=== PATIENT | male | born 1970 | race Caucasian/White ===

== ENCOUNTER 2018-12-11 14:09 | Day surgery (SDC) | payer BC ==
[2018-12-11] MEDS ORDERED: Bupivacaine 0.5%/EPINEPHrine 1:200,000 50 ML MDV ONE (15:05)
[2018-12-11] MEDS ORDERED: Lidocaine 1% with EPINEPHrine 1:100,000 20 ML MDV ONE (15:05)
[2018-12-11] MEDS ORDERED: Ondansetron 4 MG/2 ML SDV ONE (15:14)
[2018-12-11] MEDS ORDERED: Lidocaine 1% 4 ML ONE (15:14)
[2018-12-11] MEDS ORDERED: Rocuronium 50 MG/5 ML Vial ONE (15:14)
[2018-12-11] MEDS ORDERED: Midazolam 1 MG/ML 2 ML SDV ONE ×2 (15:15→17:04)
[2018-12-11] MEDS ORDERED: Propofol 200 MG/20 ML SDV ONE (15:15)
[2018-12-11] MEDS ORDERED: fentaNYL 250 MCG/5 ML SDV ONE (15:15)
--- NOTE | 2018-12-11 15:18 | PCM.HP ---
H&P History of Present Illness - General Date of Service: 12/11/18 Admit Problem/Dx: Admission Diagnosis/Problem Admission Diagnosis/Problem Appendicitis Source of Information: Patient, Provider History Limitations: Reports: No Limitations - History of Present Illness Initial Comments - Free Text/Narative: The patient is a 48 y/o gentleman who presents with a 7 day history of abdominal pain. The pain was on the right side and the patient attributed this to muscle soreness. However, it localizes right lower quadrant today. He reports subjective fever with chills last night. He had mild pain with urination. He reports the pain becomes more severe. His abdomen with movement or riding over bumps. He denies any nausea, vomiting, diarrhea, constipation. He presented to the [facility]. He underwent evaluation with laboratory testing which revealed White blood cell count 12.9, he also had a CT scan done of the abdomen which showed acute appendicitis. Right Lower Abdomen Pain Score (Numeric/FACES): 9 - Related Data Allergies/Adverse Reactions: Allergies Allergy/AdvReac Type Severity Reaction Status Date / Time No Known Allergies Allergy Verified 12/11/18 14:20 Home Medications: Home Meds EPINEPHrine [Epinephrine] 1 applic INJECT ASDIRECTED 12/11/18 [History] Ibuprofen [Motrin] 800 mg PO TID 12/11/18 [History] [place]-3 Fatty Acids/Fish Oil [[facility] Fish Oil 1,200 mg Softgel] 1 tab PO DAILY 01/22 [History] diphenhydrAMINE [Benadryl] 25 mg PO QID PRN 12/11/18 [History] Past Medical History Cardiovascular History: Reports: High Cholesterol, Hypertension Social & Family History - Family History Cardiac: Reports: Hypertension, [place] Endocrine/Metabolic: Reports: Diabetes, type II Oncologic: Reports: Breast, Skin - Tobacco Use Smoking Status *Q: Never Smoker - Caffeine Use Caffeine Use: Reports: Coffee - Recreational Drug Use Recreational Drug Use: No H&P Review of Systems - Review of Systems: Review Of Systems: See Below General: Reports: Fever (Subjective), Chills HEENT: Reports: No Symptoms Pulmonary: Reports: No Symptoms Cardiovascular: Reports: No Symptoms Gastrointestinal: Reports: Abdominal Pain. Denies: Anorexia, Constipation, Diarrhea, Hematochezia Genitourinary: Reports: Dysuria Musculoskeletal: Denies: No Symptoms Skin: Reports: No Symptoms Neurological: Reports: No Symptoms Hematologic/Lymphatic: Reports: Easy Bleeding Exam - Exam Exam: See Below - Vital Signs Vital Signs: Last Vital Signs Temp 36.9 C 12/11/18 14:26 Pulse 90 12/11/18 14:26 Resp 20 12/11/18 14:26 BP 137/101 H 12/11/18 14:26 Pulse Ox 98 12/11/18 14:26 Weight: 89.358 kg - Exam Quality Assessment: No: Supplemental Oxygen General: Alert, Oriented HEENT: Conjunctiva Clear, EOMI Neck: Supple Lungs: Clear to Auscultation, Normal Respiratory Effort Cardiovascular: Regular Rate, Regular Rhythm GI/Abdominal Exam: Soft, No Distention, Rebound (And right lower quadrant), Tender (In the right lower quadrant) Extremities: Other (Deformity of right ankle due to old fractures) Peripheral Pulses: 2+: Dorsalis Pedis (L), Dorsalis Pedis (R) Skin: Warm, Dry, Intact Neurological: Cranial Nerves Intact Neuro Extensive - Mental Status: Alert, Oriented x3 *Q Meaningful Use (ADM) - VTE Risk Assess *Q Each Risk Factor Represents 1 Point: Age 41 - 59 years, Minor Surgery Planned Total Score 1 Point Risk Factors: 2 - Problem List (1) Acute appendicitis SNOMED Code(s): 48738186 ICD Code: K35.80 - UNSPECIFIED ACUTE APPENDICITIS Status: Acute Current Visit: Yes Problem List Initiated/Reviewed/Updated: Yes Orders Last 24hrs: Active Orders 24 hr Category Date Time Status Patient Status [ADT] Routine ADT 12/11/18 14:40 Active Schedule Procedure [COMM] Stat Oth 12/11/18 14:42 Ordered Assessment/Plan Comment:: 48, with acute appendicitis. - Discussed surgical treatment with laparoscopic appendectomy, possible open. Discussed risks of infection, bleeding, possible bowel injury and/or possible staple line failure. Written consent was obtained - Discussed with the patient family that the hospital stay will be determined on intraoperative findings. There is a question of perforation on the CT scan, however, we also discussed that extended stay for IV antibiotics will not be helpful in preventing an abscess - Nothing by mouth - IV fluid resuscitation - Will give dose of IV metronidazole and ceftriaxone Starla Tijerina MD General Surgery
[2018-12-11] MEDS ORDERED: metroNIDAZOLE/Normal Saline 500 MG in Premix Bag 1 BAG IV ONE (15:22)
[2018-12-11] MEDS ORDERED: cefTRIAXone 2 GM Vial IV ONE (15:22)
[2018-12-11] MEDS ORDERED: cefTRIAXone 2 GM in Sodium Chloride 0.9% 100 ML IV STA (15:25)
--- NOTE | 2018-12-11 15:27 | PCM.PREANE ---
Preanesthetic Assessment - Procedure Proposed Procedure: appy - Anesthesia/Transfusion/Family Hx Anesthesia History: No Prior Anesthesia Family History of Anesthesia Reaction: No Transfusion History: No Prior Transfusion(s) - Review of Systems General: Fever (last 2 days), Chills Pulmonary: No Symptoms Cardiovascular: No Symptoms Gastrointestinal: Abdominal Pain (48 hous) Neurological: No Symptoms Other: Reports: None - Physical Assessment NPO Status Date: 12/10/18 (had water today) NPO Status Time: 18:00 O2 Sat by Pulse Oximetry: 98 Respiratory Rate: 20 Vital Signs: Last Vital Signs Temp 98.5 F 12/11/18 14:26 Pulse 90 12/11/18 14:26 Resp 20 12/11/18 14:26 BP 137/101 H 12/11/18 14:26 Pulse Ox 98 12/11/18 14:26 Height: 6 ft 2 in Weight: 89.358 kg ASA Class: 2E Mental Status: Alert & Oriented x3 Airway Class: Mallampati = 1 Dentition: Reports: Normal Dentition Thyro-Mental Finger Breadths: 3 Mouth Opening Finger Breadths: 3 ROM/Head Extension: Full Lungs: Clear to Auscultation, Normal Respiratory Effort Cardiovascular: Regular Rate, Regular Rhythm - Allergies Allergies/Adverse Reactions: Allergies Allergy/AdvReac Type Severity Reaction Status Date / Time No Known Allergies Allergy Verified 12/11/18 14:20 - Blood Blood Available: No - Acknowledgements Anesthesia Type Planned: General Anesthesia Pt an Appropriate Candidate for the Planned Anesthesia: Yes Alternatives and Risks of Anesthesia Discussed w Pt/Guardian: Yes Pt/Guardian Understands and Agrees with Anesthesia Plan: Yes PreAnesthesia Questionnaire - Past Health History Medical/Surgical History: Denies Medical/Surgical History Cardiovascular History: Reports: High Cholesterol, Hypertension Respiratory History: Reports: None Gastrointestinal History: Reports: GERD Oncologic (Cancer) History: Reports: None - SUBSTANCE USE Smoking Status *Q: Never Smoker Tobacco Use Within Last Twelve Months: Snuff/Dip Second Hand Smoke Exposure: No Days Per Week of Alcohol Use: 7 Number of Drinks Per Day: 6 Total Drinks Per Week: 42 Recreational Drug Use History: No - HOME MEDS Home Medications: Home Meds EPINEPHrine [Epinephrine] 1 applic INJECT ASDIRECTED 12/11/18 [History] Ibuprofen [Motrin] 800 mg PO TID 12/11/18 [History] [place]-3 Fatty Acids/Fish Oil [[facility] Fish Oil 1,200 mg Softgel] 1 tab PO DAILY 01/22 [History] diphenhydrAMINE [Benadryl] 25 mg PO QID PRN 12/11/18 [History] - CURRENT (IN HOUSE) MEDS Current Meds: Current Medications Discontinued Medications Bupivacaine HCl/Epinephrine Bitart (Marcaine 0.5%/Epinephrine 1:200,000) Confirm Administered Dose 50 ml .ROUTE .STK-MED ONE Stop: 12/11/18 15:06 Fentanyl (Sublimaze) Confirm Administered Dose 250 mcg .ROUTE .STK-MED ONE Stop: 12/11/18 15:16 Lidocaine HCl (Xylocaine-Mpf 1%) Confirm Administered Dose 4 mls @ as directed .ROUTE .STK-MED ONE Stop: 12/11/18 15:15 Lidocaine/Epinephrine (Xylocaine 1% With Epinephrine 1:100,000) Confirm Administered Dose 40 ml .ROUTE .STK-MED ONE Stop: 12/11/18 15:06 Midazolam HCl (Versed 1 Mg/Ml) Confirm Administered Dose 2 mg .ROUTE .STK-MED ONE Stop: 12/11/18 15:16 Ondansetron HCl (Zofran) Confirm Administered Dose 4 mg .ROUTE .STK-MED ONE Stop: 12/11/18 15:15 Propofol (Diprivan 20 Ml) Confirm Administered Dose 200 mg .ROUTE .STK-MED ONE Stop: 12/11/18 15:16 Rocuronium [place] (Zemuron) Confirm Administered Dose 50 mg .ROUTE .STK-MED ONE Stop: 12/11/18 15:15
[2018-12-11] MEDS ORDERED: Sodium Chloride 0.9% 1,000 ML IV SCH (15:30)
[2018-12-11] MEDS ORDERED: Succinylcholine/Normal Saline 100 MG/5 ML Syringe ONE (15:43)
[2018-12-11] MEDS ORDERED: HYDROmorphone 0.5 MG/0.5 ML Syringe ONE (15:55)
[2018-12-11] MEDS ORDERED: HYDROmorphone 0.5 MG/0.5 ML Syringe IVPUSH PRN (15:59)
[2018-12-11] MEDS ORDERED: fentaNYL 100 MCG/2 ML SDV IVPUSH PRN (15:59)
[2018-12-11] MEDS ORDERED: Haloperidol Lactate 5 MG/ML SDV IVPUSH ONE (15:59)
[2018-12-11] MEDS ORDERED: Ondansetron 4 MG/2 ML SDV IVPUSH PRN (15:59)
[2018-12-11] MEDS ORDERED: Neostigmine Methylsulfate 1 MG/ML 5 ML Syringe ONE (16:13)
[2018-12-11] MEDS ORDERED: Ketorolac 30 MG/ML SDV ONE (16:30)
[2018-12-11] MEDS ORDERED: Lactated Ringers 1,000 ML ONE (16:39)
[2018-12-11] MEDS ORDERED: ePHEDrine/Normal Saline 25 MG/5 ML Syringe ONE (16:50)
--- NOTE | 2018-12-11 17:01 | PCM.OPNOTE ---
- General Post-Op/Procedure Note Date of Surgery/Procedure: 12/11/18 Operative Procedure(s): laparoscopic appendectomy Findings: inflamed appendix, gangrenous at base Pre Op Diagnosis: acute appendicitis Post-Op Diagnosis: same Anesthesia Technique: General ET Tube Primary Surgeon: Starla Tijerina Anesthesia Provider: Arnaldo Pino Pathology: appendix Fluid Replacement, Intraop: 1,000 Output, Urine Amount: 0 EBL in mLs: 10 Complications: none apparent Condition: Stable
--- NOTE | 2018-12-11 17:06 | PCM.PRNOTE ---
- Free Text/Narrative Note: Operative Report Date of surgery: December 11, 2018 Preoperative diagnosis: acute appendicitis. Postoperative diagnosis: same Procedure performed: laparoscopic appendectomy Surgeon: Dr. Starla Tijerina Anesthesia: General Corporate Sales Manager: . Arnaldo Pino CRNA Estimated blood loss 10 mL IV fluids: 1000 mL crystalloid Urine output: 0mL, patient voided prior to the procedure Drains and lines: None Findings: . Inflamed appendix with gangrenous base Pathology: Appendix Indications for procedure: The patient is a 48-year-old male who presented to the walk-in clinic with a 6 day history of abdominal pain that localized to the right lower quadrant in the last day. He had elevated white blood cell count of 12.[address] and findings of acute appendicitis. He was counseled for laparoscopic appendectomy, possible conversion to open. We discussed risk of infection, bleeding and possible bowel injury, possible staple line failure. His written consent was obtained. Description of procedure: The patient was taken back to the operating room and placed in supine position on the operating table. SCD boots were in place and functional prior to the start of the procedure. Preoperative antibiotics were administered, ceftriaxone 2 g IV and metronidazole 500 mg IV. The patient had successful induction of general anesthesia and was intubated without difficulty. Pt was then prepped and draped in standard surgical fashion and a timeout was performed. We began by making a 15 mm incision in the infraumbilical skin and deepened down to level of the fascia which was then grasped and incised sharply. We entered the peritoneum and then placed stay sutures of 0 Vicryl on the fascial edges. A 12 mm Trinidad port was then placed into the umbilicus and the balloon was inflated. The abdomen was insufflated to 15 mmHg a 5 mm camera was inserted. There was no evidence of any injury created from entry into the abdomen. A TA P block was performed using mixed 1% lidocaine with epinephrine and 0.5% bupivacaine with epinephrine . We then proceeded to place a 5 mm port under direct visualization in the suprapubic midline and an additional 5mm port in the left lower quadrant. The patient was then positioned in Trendelenburg with right side elevated and we proceeded to mobilize the appendix. The appendix was inflamed with fibrinous adhesions to the surrounding small bowel. These adhesions were taken down and the appendix is grasped. We noted that the base appeared gangrenous with possible perforation. This was grasped and elevated. There were adhesions to the lateral abdominal wall which were taken down. The appendix base was then isolated and this tissue staple load was fired at the base of the appendix. Mesoappendix was taken with a vascular staple load. The specimen was in place in the Endo Catch bag. We then used a Ray-Kristin to remove any blood in the area. There was no active bleeding at the end of this case. The abdomen was then desufflated and the umbilical fascia closed with 0 Vicryl suture. The skin was then reapproximated at all port sites using a 4-0 Monocryl subcutaneous stitch and covered with Dermabond surgical glue. The patient tolerated the procedure. He was extubated and transported to the PACU in stable condition. There were no apparent complications All sponge and needle counts were correct. I was present and scrubbed for the entirety of the procedure. Starla Tijerina MD General Surgery
--- NOTE | 2018-12-11 17:17 | PCM.POSTAN ---
POST ANESTHESIA ASSESSMENT - MENTAL STATUS Mental Status: Alert, Oriented - VITAL SIGNS Pulse Rate: 100 SaO2: 98 Resp Rate: 12 Blood Pressure: 119/65 Temperature: 97.9 F - RESPIRATORY Respiratory Status: Respiratory Rate WNL, Airway Patent, O2 Saturation Stable, Supplemental Oxygen - CARDIOVASCULAR CV Status: Pulse Rate WNL, Blood Pressure Stable - GASTROINTESTINAL GI Status: No Symptoms - PAIN Pain Score: 0 - POST OP HYDRATION Hydration Status: Adequate & Stable
--- NOTE | 2018-12-11 17:41 | PCM48HPAN ---
Post Anesthesia Note - EVALUATION WITHIN 48HRS OF ANESTHETIC Vital Signs in Normal Range: Yes Patient Participated in Evaluation: Yes Respiratory Function Stable: Yes Airway Patent: Yes (resp at ease) Cardiovascular Function Stable: Yes Hydration Status Stable: Yes Pain Control Satisfactory: Yes Nausea and Vomiting Control Satisfactory: Yes Mental Status Recovered: Yes Pulse Rate: 100 Resp Rate: 12 Temperature: 97.9 F Blood Pressure: 119/65
== END 2018-12-11 23:15 | disposition home or self-care (01) ==
LOC: JD.ED 14:09 → JD.SDS 15:00
PROVIDERS: ATTEND Surgery
DX: K35.31 Acute appendicitis with localized peritonitis and gangrene, without perforation (principal); I10 Essential (primary) hypertension; E78.00 Pure hypercholesterolemia, unspecified; F17.290 Nicotine dependence, other tobacco product, uncomplicated; Z79.899 Other long term (current) drug therapy
CPT/HCPCS: 44970; 99283; C9399; J0330; J1170; J1885; J2001; J2250; J2405; J2704; J2710; J3010; J3490; J7050; J7120; 00840

== ENCOUNTER 2019-07-26 09:54 | Emergency (ER) | payer BC ==
[2019-07-26] MEDS ORDERED: Sodium Chloride 0.9% 10 ML Syringe FLUSH PRN (10:35)
[2019-07-26] MEDS ORDERED: Ondansetron 4 MG/2 ML SDV IVPUSH ONE (10:35)
[2019-07-26] MEDS ORDERED: Sodium Chloride 0.9% 1,000 ML IV ONE (10:35)
--- NOTE | 2019-07-26 10:36 | EDM.PDOC ---
ED HPI GENERAL MEDICAL PROBLEM - General Chief Complaint: Gastrointestinal Problem Stated Complaint: COUGH AND VOMITING FOR 1 WEEK Time Seen by Provider: 07/26/19 10:28 Source of Information: Reports: Patient, RN Notes Reviewed History Limitations: Reports: No Limitations - History of Present Illness INITIAL COMMENTS - FREE TEXT/NARRATIVE: Patient is a 48-year-old male who presents to the ED for evaluation of a cough, and vomiting. Patient states that he thinks he had the flu last week, as he had generalized body aches and chills with a fever. He states over the last week since he began developing symptoms, he has had increased nausea, and is not been able to keep much down for foods or fluids. His notes that he usually drinks 8 or so bottles of water a day, she is fernando if she can get him to drink 1 cup. They note that as soon as he eats or drink anything, that it seems to come up 20 minutes later, sometimes even certain smells will make him vomit. Patient notes that he does have some heartburn as well, and he has been taking Jillian-[place]rie as well. He is not complaining of chest pain or any shortness of breath. He does note that he has some phlegm, it is quite thick that he cannot cough it up. Patient denies any sort of regular medications that he takes, and he does not have a regular provider that he sees. - Related Data Allergies Allergy/AdvReac Type Severity Reaction Status Date / Time No Known Allergies Allergy Verified 07/26/19 10:24 Home Meds: Home Meds EPINEPHrine [Epinephrine] 1 applic INJECT ASDIRECTED 12/11/18 [History] diphenhydrAMINE [Benadryl] 25 mg PO QID PRN 12/11/18 [History] Ondansetron [Zofran ODT] 4 mg PO Q8H PRN #12 tab.dis 07/26/19 [Rx] Promethazine HCl/Codeine [Prometh-Codein 6.25-10 mg/5 ml] 5 ml PO Q4H PRN #60 ml 07/26/19 [Rx] Past Medical History Cardiovascular History: Reports: High Cholesterol, Hypertension Gastrointestinal History: Reports: GERD - Past Surgical History GI Surgical History: Reports: Appendectomy Social & Family History - Family History Family Medical History: Noncontributory Cardiac: Reports: Hypertension, [place] Endocrine/Metabolic: Reports: Diabetes, type II Oncologic: Reports: Breast, Skin - Tobacco Use Smoking Status *Q: Never Smoker - Caffeine Use Caffeine Use: Reports: Coffee, Soda - Recreational Drug Use Recreational Drug Use: Yes Recreational Drug Use Frequency: Rarely ED ROS GENERAL - Review of Systems Review Of Systems: See Below Constitutional: Denies: Fever, Chills HEENT: Denies: Throat Pain Respiratory: Reports: Cough. Denies: Shortness of Breath, Sputum Cardiovascular: Denies: Chest Pain GI/Abdominal: Reports: Nausea, Vomiting. Denies: Abdominal Pain, Constipation, Diarrhea ED EXAM, GI/ABD - Physical Exam Exam: See Below Exam Limited By: No Limitations General Appearance: Alert, WD/WN, No Apparent Distress Eyes: Bilateral: Normal Appearance, EOMI Ears: Normal External Exam Throat/Mouth: Normal Inspection, Normal Lips, Normal Teeth, Normal Gums, Normal Oropharynx (mildly dry oral mucosa), Normal Voice, No Airway Compromise Head: Atraumatic, Normocephalic Neck: Normal Inspection Respiratory/Chest: No Respiratory Distress, Lungs Clear, Normal Breath Sounds, No Accessory Muscle Use, Chest Non-Tender Cardiovascular: Normal Peripheral Pulses, Regular Rate, Rhythm, No Murmur GI/Abdominal Exam: Normal Bowel Sounds, Soft, Non-Tender, No Distention, No Mass Extremities: Normal Inspection, Normal Capillary Refill Neurological: Alert, Oriented, Normal Cognition, No Motor/Sensory Deficits Psychiatric: Normal Affect, Normal Mood Skin Exam: Warm, Dry, Intact, Normal Color, No Rash Course - Vital Signs Last Recorded V/S: Last Vital Signs Temp 99.0 F 07/26/19 10:21 Pulse 94 07/26/19 10:21 Resp 19 07/26/19 12:55 BP 148/96 H 07/26/19 12:55 Pulse Ox 100 07/26/19 12:55 - Orders/Labs/Meds Orders: Active Orders 24 hr Category Date Time Status Peripheral IV Care [RC] . DIRECTED Care 07/26/19 10:35 Active Peripheral IV Insertion Adult [OM.PC] Stat Oth 07/26/19 10:34 Ordered Labs: Laboratory Tests 07/26/19 07/26/19 Range/Units 10:50 10:50 WBC 5.87 (4.23-9.07) K/mm3 RBC 4.61 L (4.63-6.08) M/mm3 Hgb 15.4 (13.7-17.5) gm/dl Hct 45.2 (40.1-51.0) % MCV 98.0 H (79.0-92.2) fl MCH 33.4 H (25.7-32.2) pg MCHC 34.1 (32.2-35.5) g/dl RDW Std Deviation 43.6 (35.1-43.9) fL Plt Count 143 L (163-337) K/mm3 MPV 9.2 L (9.4-12.3) fl Neut % (Auto) 72.6 H (34.0-67.9) % Lymph % (Auto) 14.8 L (21.8-53.1) % [place] % (Auto) 10.4 (5.3-12.2) % Eos % (Auto) 1.5 (0.8-7.0) Baso % (Auto) 0.5 (0.1-1.2) % Neut # (Auto) 4.26 (1.78-5.38) K/mm3 Lymph # (Auto) 0.87 L (1.32-3.57) K/mm3 [place] # (Auto) 0.61 (0.30-0.82) K/mm3 Eos # (Auto) 0.09 (0.04-0.54) K/mm3 Baso # (Auto) 0.03 (0.01-0.08) K/mm3 Sodium 140 (136-145) mEq/L Potassium 4.1 (3.5-5.1) mEq/L Chloride 102 (98-107) mEq/L Carbon Dioxide 25 (21-32) mEq/L Anion Gap 17.1 H (5-15) BUN 10 (7-18) mg/dL Creatinine 1.2 (0.7-1.3) mg/dL Est Cr Clr Drug Dosing 89.43 mL/min Estimated GFR (MDRD) > 60 (>60) mL/min BUN/Creatinine Ratio 8.3 L (14-18) Glucose 119 H (74-106) mg/dL Calcium 8.7 (8.5-10.1) mg/dL Total Bilirubin 1.5 H (0.2-1.0) mg/dL AST 153 H (15-37) U/L ALT 124 H (16-63) U/L Alkaline Phosphatase 103 (46-116) U/L Total Protein 7.5 (6.4-8.2) g/dl Albumin 3.9 (3.4-5.0) g/dl Globulin 3.6 gm/dL Albumin/Globulin Ratio 1.1 (1-2) Meds: Medications Discontinued Medications Generic Name Dose Route Start Last Admin Trade Name Freq PRN Reason Stop Dose Admin Sodium Chloride 1,000 mls @ 999 mls/hr 07/26/19 10:35 07/26/19 11:06 Normal Saline IV 07/26/19 11:35 999 mls/hr ONETIME ONE Administration Ondansetron HCl 4 mg 07/26/19 10:35 07/26/19 11:06 Zofran IVPUSH 07/26/19 10:36 4 mg ONETIME ONE Administration Pantoprazole Sodium 40 mg 07/26/19 10:49 07/26/19 11:02 Protonix Iv IVPUSH 07/26/19 10:50 40 mg ONETIME ONE Administration Sodium Chloride 10 ml 07/26/19 10:35 07/26/19 11:07 Saline Flush FLUSH 10 ml ASDIRECTED PRN Administration Keep Vein Open - Re-Assessments/Exams Free Text/Narrative Re-Assessment/Exam: 07/26/19 10:52 Patient presents to the ED for the evaluation of nausea/vomiting. I will have an IV be placed, give some IV fluids, CBC, CMP for initial management and 4 mg Zofran for nausea relief, with 40mg Protonix for heartburn relief. Departure - Departure Time of Disposition: 12:11 Disposition: Home, Self-Care 01 Condition: Fair Clinical Impression: Cough Nausea and vomiting Qualifiers: Vomiting type: unspecified Vomiting Intractability: non-intractable Qualified Code(s): R11.2 - Nausea with vomiting, unspecified - Discharge Information *PRESCRIPTION DRUG MONITORING PROGRAM REVIEWED*: Yes *COPY OF PRESCRIPTION DRUG MONITORING REPORT IN PATIENT HAYDEE: No Prescriptions: Ondansetron [Zofran ODT] 4 mg PO Q8H PRN #12 tab.dis PRN Reason: Nausea Promethazine HCl/Codeine [Prometh-Codein 6.25-10 mg/5 ml] 5 ml PO Q4H PRN #60 ml PRN Reason: Cough Instructions: Nausea and Vomiting, Adult, [id number] Referrals: PCP,None [Primary Care Provider] - Forms: ED Department Discharge, ED Return to Work/School Form Additional Instructions: You have been evaluated in the ED for nausea/vomiting. You have received IV fluid in the ED to help with the dehydration from the vomiting. Over the next 24-48 hours please try to limit diet to clear liquids and advance as tolerate to a bland diet to alleviate symptoms of nausea/vomiting. Please use the Zofran every 8 hours as needed for nausea. You were also given a prescription for cough medication please take as directed. These medications were electronically prescribed to the [facility] pharmacy located on [address]. Your liver enzymes were mildly elevated, recommend that you have a repeat testing of these sometime in the next week or 2 to make sure they are returning within normal limits. This was an incidental finding, and most likely is not an acute matter. Please return to the ED if your symptoms should change or worsen. Sepsis Event Note - Evaluation Sepsis Screening Result: No Definite Risk - Focused Exam Vital Signs: Vital Signs Temp Pulse Resp BP Pulse Ox 07/26/19 12:55 19 148/96 H 100 07/26/19 10:21 99.0 F 94 17 184/114 H 98 Date Exam was Performed: 07/26/19 Time Exam was Performed: 19:41 - My Orders Last 24 Hours: My Active Orders 07/26/19 10:34 Peripheral IV Insertion Adult [OM.PC] Stat 07/26/19 10:35 Peripheral IV Care [RC] . DIRECTED - Assessment/Plan Last 24 Hours: My Active Orders 07/26/19 10:34 Peripheral IV Insertion Adult [OM.PC] Stat 07/26/19 10:35 Peripheral IV Care [RC] . DIRECTED
[2019-07-26] MEDS ORDERED: Pantoprazole 40 MG Vial IVPUSH ONE (10:49)
== END 2019-07-26 12:55 | disposition home or self-care (01) ==
LOC: JD.ED 09:54
DX: R11.2 Nausea with vomiting, unspecified (principal); R05 Cough; I10 Essential (primary) hypertension
CPT/HCPCS: 36415; 80053; 85025; 96361; 96374; 96375; 99284; C9113; J2405; J7030; 99283

== ENCOUNTER 2020-05-16 12:10 | Emergency (ER) | payer BC ==
[2020-05-16] MEDS ORDERED: Sodium Chloride 0.9% 10 ML Syringe FLUSH PRN (12:28)
[2020-05-16] MEDS ORDERED: Sodium Chloride 0.9% 1,000 ML IV STA (12:52)
--- NOTE | 2020-05-16 13:49 | CR ---
PROCEDURE INFORMATION: Exam: XR Chest, 1 View Exam date and time: 05/16/2020 12:20 PM Age: 49 years old Clinical indication: Cough TECHNIQUE: Imaging protocol: XR of the chest Views: 1 view. COMPARISON: No relevant prior studies available. FINDINGS: Lungs: Area patchy airspace opacity noted within the right middle lobe consistent with atelectasis and/or developing pneumonia. Pleural space: Unremarkable. No pleural effusion. No pneumothorax. Heart/Mediastinum: Unremarkable. No cardiomegaly. Diaphragm: There is nonspecific elevation of the right hemidiaphragm. Bones/joints: Unremarkable. IMPRESSION: Area patchy airspace opacity noted within the right middle lobe consistent with atelectasis and/or developing pneumonia. Thank you for allowing us to participate in the care of your patient. Dictated and Authenticated by: Frank Branch DO 05/16/2020 2:27 PM Central Time ([place] & [place]) MELV[place]
[2020-05-16] MEDS ORDERED: Potassium Chloride 20 MEQ Tab.ER PO ONE (14:02)
[2020-05-16] MEDS ORDERED: Lactated Ringers 1,000 ML IV SCH ×2 (14:15→20:30)
[2020-05-16] MEDS ORDERED: Ketorolac 30 MG/ML SDV IVPUSH ONE (14:41)
[2020-05-16] MEDS: Potassium Chloride 10 MEQ in Premix Bag 1 BAG IV SCH ×6 (14:41→20:45)
--- NOTE | 2020-05-16 15:04 | EDM.PDOC ---
ED HPI GENERAL MEDICAL PROBLEM - General Chief Complaint: General Stated Complaint: VOMITING/DIARRHEA/FEVER Time Seen by Provider: 05/16/20 12:25 Source of Information: Reports: Patient, RN Notes Reviewed History Limitations: Reports: No Limitations - History of Present Illness INITIAL COMMENTS - FREE TEXT/NARRATIVE: Patient is a 49-year-old male presenting to the emergency department with complaints of vertigo, nausea, vomiting, diarrhea, headaches and intermittent abdominal pain for the past week. States his fever at home has been as high as 102.7. He denies feeling short of breath but does complain of a chronic cough. He states that his was Covid positive and just came off isolation couple days ago. Patient admits to a long history of alcoholism which he states has been worsening over the last few years. He admits to drinking approximately 24 shots daily and has maintained this throughout this illness. This morning he had 3 shots prior to coming to the ER as he states that he started to feel anxious and shaky. He recognizes that he needs assistance in order to stop drinking. He states that his anxiety is the cause of his drinking. He has had a lot of stress in his life recently and uses the alcohol as a means to cope. He denies any illicit drug use. He has never had seizures with withdrawal. Head Pain Score (Numeric/FACES): 6 - Related Data Allergies Allergy/AdvReac Type Severity Reaction Status Date / Time No Known Allergies Allergy Verified 05/16/20 12:26 Home Meds: Home Meds EPINEPHrine [Epinephrine] 1 applic INJECT ASDIRECTED 12/11/18 [History] diphenhydrAMINE [Benadryl] 25 mg PO QID PRN 12/11/18 [History] Ondansetron [Zofran ODT] 4 mg PO Q8H PRN #12 tab.dis 07/26/19 [Rx] Promethazine HCl/Codeine [Prometh-Codein 6.25-10 mg/5 ml] 5 ml PO Q4H PRN #60 ml 07/26/19 [Rx] LORazepam [Ativan] 1 mg PO ASDIRECTED #18 tab 05/16/20 [Rx] Ondansetron [Zofran ODT] 4 mg PO Q6H PRN #10 tab.dis 05/16/20 [Rx] Potassium Chloride 20 meq PO BID 4 Days #8 tab.er.prt 05/16/20 [Rx] Past Medical History - Past Health History Medical/Surgical History: Denies Medical/Surgical History Cardiovascular History: Reports: High Cholesterol, Hypertension Respiratory History: Reports: None Gastrointestinal History: Reports: GERD Psychiatric History: Reports: Anxiety Oncologic (Cancer) History: Reports: None - Past Surgical History GI Surgical History: Reports: Appendectomy Social & Family History - Family History Family Medical History: No Pertinent Family History Cardiac: Reports: Hypertension, [place] Endocrine/Metabolic: Reports: Diabetes, type II Oncologic: Reports: Breast, Skin - Tobacco Use Tobacco Use Status *Q: Current Every Day Tobacco User Years of Tobacco use: 20 Packs/Tins Daily: 1 - Caffeine Use Caffeine Use: Reports: None - Alcohol Use Days Per Week of Alcohol Use: 7 Number of Drinks Per Day: 24 Total Drinks Per Week: 168 - Recreational Drug Use Recreational Drug Use: No ED ROS GENERAL - Review of Systems Review Of Systems: See Below Constitutional: Reports: Fever, Chills, Fatigue HEENT: Reports: No Symptoms Respiratory: Reports: Cough. Denies: Shortness of Breath, Pleuritic Chest Pain Cardiovascular: Reports: No Symptoms. Denies: Chest Pain, Dyspnea on Exertion, Lightheadedness, Syncope Endocrine: Reports: No Symptoms GI/Abdominal: Reports: Abdominal Pain, Diarrhea, Nausea, Vomiting : Reports: No Symptoms Musculoskeletal: Reports: No Symptoms Skin: Reports: No Symptoms Neurological: Reports: Headache. Denies: Confusion, Dizziness Psychiatric: Reports: Anxiety Hematologic/Lymphatic: Reports: No Symptoms Immunologic: Reports: No Symptoms ED EXAM, GENERAL - Physical Exam Exam: See Below Exam Limited By: No Limitations General Appearance: Alert, WD/WN, Anxious Respiratory/Chest: No Respiratory Distress, Lungs Clear, Normal Breath Sounds, No Accessory Muscle Use, Chest Non-Tender Cardiovascular: Normal Peripheral Pulses, Regular Rate, Rhythm, No Edema, No Gallop, No JVD, No Murmur, No Rub, Tachycardia GI/Abdominal: Normal Bowel Sounds, Soft, Non-Tender, No Organomegaly, No Distention, No Abnormal Bruit, No Mass. No: Guarding, Rigid, Rebound Neurological: Alert, Oriented, CN II-XII Intact, Normal Cognition, Normal Gait, Normal Reflexes, No Motor/Sensory Deficits Psychiatric: Normal Affect, Anxious (Mildly) Skin Exam: Warm, Dry, Intact, Normal Color, No Rash Course - Vital Signs Last Recorded V/S: Last Vital Signs Temp 98.5 F 05/16/20 22:52 Pulse 101 H 05/16/20 22:52 Resp 18 05/16/20 22:52 BP 157/89 H 05/16/20 22:52 Pulse Ox 95 05/16/20 22:52 - Orders/Labs/Meds Labs: Laboratory Tests 05/16/20 05/16/20 05/16/20 Range/Units 12:55 12:55 12:55 WBC 6.20 (4.23-9.07) K/mm3 RBC 4.37 L (4.63-6.08) M/mm3 Hgb 14.6 (13.7-17.5) gm/dl Hct 43.0 (40.1-51.0) % MCV 98.4 H (79.0-92.2) fl MCH 33.4 H (25.7-32.2) pg MCHC 34.0 (32.2-35.5) g/dl RDW Std Deviation 47.2 H (35.1-43.9) fL Plt Count 198 (163-337) K/mm3 MPV 10.0 (9.4-12.3) fl Neut % (Auto) 84.4 H (34.0-67.9) % Lymph % (Auto) 6.3 L (21.8-53.1) % Morris % (Auto) 8.9 (5.3-12.2) % Eos % (Auto) 0 L (0.8-7.0) Baso % (Auto) 0.2 (0.1-1.2) % Neut # (Auto) 5.24 (1.78-5.38) K/mm3 Lymph # (Auto) 0.39 L (1.32-3.57) K/mm3 Morris # (Auto) 0.55 (0.30-0.82) K/mm3 Eos # (Auto) 0.00 L (0.04-0.54) K/mm3 Baso # (Auto) 0.01 (0.01-0.08) K/mm3 Manual Slide Review Abnormal smear Sodium 134 L (136-145) mEq/L Potassium 2.2 L* D (3.5-5.1) mEq/L Chloride 92 L (98-107) mEq/L Carbon Dioxide 29 (21-32) mEq/L Anion Gap 15.2 H (5-15) BUN 7 (7-18) mg/dL Creatinine 1.2 (0.7-1.3) mg/dL Est Cr Clr Drug Dosing 87.88 mL/min Estimated GFR (MDRD) > 60 (>60) mL/min BUN/Creatinine Ratio 5.8 L (14-18) Glucose 154 H (74-106) mg/dL Lactic Acid 3.5 H* (0.4-2.0) mmol/L Calcium 8.5 (8.5-10.1) mg/dL Magnesium 2.0 (1.8-2.4) mg/dl Total Bilirubin 1.4 H (0.2-1.0) mg/dL AST 775 H (15-37) U/L ALT 190 H (16-63) U/L Alkaline Phosphatase 254 H (46-116) U/L C-Reactive Protein 12.0 H* (<1.0) mg/dL Total Protein 7.5 (6.4-8.2) g/dl Albumin 3.1 L (3.4-5.0) g/dl Globulin 4.4 gm/dL Albumin/Globulin Ratio 0.7 L (1-2) Lipase 185 (73-393) U/L Ethyl Alcohol (0.00) gm% SARS-CoV-2 RNA (NOLVIA) (NEGATIVE) 05/16/20 05/16/20 05/16/20 Range/Units 12:55 13:00 21:50 WBC (4.23-9.07) K/mm3 RBC (4.63-6.08) M/mm3 Hgb (13.7-17.5) gm/dl Hct (40.1-51.0) % MCV (79.0-92.2) fl MCH (25.7-32.2) pg MCHC (32.2-35.5) g/dl RDW Std Deviation (35.1-43.9) fL Plt Count (163-337) K/mm3 MPV (9.4-12.3) fl Neut % (Auto) (34.0-67.9) % Lymph % (Auto) (21.8-53.1) % Morris % (Auto) (5.3-12.2) % Eos % (Auto) (0.8-7.0) Baso % (Auto) (0.1-1.2) % Neut # (Auto) (1.78-5.38) K/mm3 Lymph # (Auto) (1.32-3.57) K/mm3 Morris # (Auto) (0.30-0.82) K/mm3 Eos # (Auto) (0.04-0.54) K/mm3 Baso # (Auto) (0.01-0.08) K/mm3 Manual Slide Review Sodium 133 L (136-145) mEq/L Potassium 2.9 L (3.5-5.1) mEq/L Chloride 96 L (98-107) mEq/L Carbon Dioxide 26 (21-32) mEq/L Anion Gap 13.9 (5-15) BUN 8 (7-18) mg/dL Creatinine 1.3 (0.7-1.3) mg/dL Est Cr Clr Drug Dosing 81.12 mL/min Estimated GFR (MDRD) 59 (>60) mL/min BUN/Creatinine Ratio 6.2 L (14-18) Glucose 141 H (74-106) mg/dL Lactic Acid (0.4-2.0) mmol/L Calcium 7.8 L (8.5-10.1) mg/dL Magnesium (1.8-2.4) mg/dl Total Bilirubin 1.5 H (0.2-1.0) mg/dL AST 810 H (15-37) U/L ALT 162 H (16-63) U/L Alkaline Phosphatase 212 H (46-116) U/L C-Reactive Protein (<1.0) mg/dL Total Protein 6.3 L (6.4-8.2) g/dl Albumin 2.5 L (3.4-5.0) g/dl Globulin 3.8 gm/dL Albumin/Globulin Ratio 0.7 L (1-2) Lipase (73-393) U/L Ethyl Alcohol 0.13 (0.00) gm% SARS-CoV-2 RNA (NOLVIA) Positive H (NEGATIVE) Meds: Medications Discontinued Medications Generic Name Dose Route Start Last Admin Trade Name Freq PRN Reason Stop Dose Admin Sodium Chloride 1,000 mls @ 999 mls/hr 05/16/20 12:52 11/10/20 13:16 Normal Saline IV 05/16/20 13:52 999 mls/hr NOW STA Administration Lactated Ringer's 1,000 mls @ 200 mls/hr 05/16/20 14:15 05/16/20 14:41 Ringers, Lactated IV 200 mls/hr ASDIRECTED WINTER Administration Potassium Chloride 10 meq/ 100 mls @ 100 mls/hr 05/16/20 14:15 05/16/20 20:45 Premix IV 05/21/20 15:14 100 mls/hr ASDIRECTED WINTER Administration Lactated Ringer's 1,000 mls @ 150 mls/hr 05/16/20 20:30 05/16/20 20:46 Ringers, Lactated IV 150 mls/hr ASDIRECTED WINTER Administration Ketorolac Tromethamine 30 mg 05/16/20 14:41 05/16/20 14:54 Toradol IVPUSH 05/16/20 14:42 30 mg ONETIME ONE Administration Lorazepam 1 mg 05/16/20 23:00 05/16/20 22:51 Ativan PO 05/16/20 23:01 1 mg ONETIME ONE Administration Potassium Chloride 40 meq 05/16/20 14:02 05/16/20 14:45 Klor-Con M20 PO 05/16/20 14:03 40 meq ONETIME ONE Administration Sodium Chloride 10 ml 05/16/20 12:28 05/16/20 12:55 Saline Flush FLUSH 10 ml ASDIRECTED PRN Administration Keep Vein Open - Re-Assessments/Exams Free Text/Narrative Re-Assessment/Exam: Patient is a 49-year-old male presenting to the emergency department with a 1 week history of fever, cough, nausea, vomiting, diarrhea, and intermittent. He has had known exposure to COVID-19. Complicating the situation, patient is a chronic alcoholic, admitting to 24 shots daily. States that he had 3 shots prior to coming to the ER to help with his anxiety. He recognizes that he needs to stop drinking and is looking for resources available to do this. Denies any history of seizures or DTs with alcohol withdrawal. He does complain of feeling anxious and shaky when he tries to stop drinking. He denies any significant shortness of breath. Vital signs in triage were significant for temperature elevated at 101.6, pulse 115, respiratory rate 20, blood pressure 170/97 with an oxygen saturation of 94% on room air. On exam, lung sounds are clear. There is no tenderness throughout the abdomen. Presentation is highly suspicious for COVID-19 with known exposure. I have ordered CBC, CMP, CRP, lipase, magnesium, EKG, chest x-ray, and a 1 hour Covid test. 05/16/20 15:22 Hematology was significant for sodium minimally low at 134, potassium low at 2.2, anion gap 15.2, lactic acid 3.5, total bili 1.4, AST 775, ALT 190, alkaline phosphatase 254, CRP 12.0. His blood alcohol is 0.13, he is Covid positive. Chest x-ray showed area of patchy airspace opacity noted within the right middle lobe consistent with atelectasis or developing pneumonia. Unfortunate there are no beds available with our facility or any neighboring facilities for admission. Patient's lactic acid is likely elevated due to dehydration and chronic alcohol abuse in addition to vomiting and diarrhea. He is Covid positive and ruled out for sepsis. Patient is not hypoxic, therefore, plan will be to replace his potassium here in the emergency department and provide him with fluids. I have ordered 6 K-riders as well as 40 mEq p.o potassium. He has had a 1 L bolus of normal saline. We will give a liter of lactated Ringer's. Discussed treatment options for alcoholism with the patient. We will plan to discharge him home with Ativan to help with withdrawal symptoms and have him follow-up with [facility] once his Covid symptoms have resolved. 05/16/20 22:03 Kylee from [facility] was here in the emergency department to see another patient. I visited with her about Massimo's case and the plan of sending him home with Ativan to help with withdrawal symptoms and that he can follow-up with guidelines once he is cleared from isolation for Covid. She will initiate out reach and contact him via phone each day to monitor how he is doing and provide support. She does have his phone number. I will also [id number] with the phone number to [facility]. Rae this plan with the patient and he is in agreement. Lab will redraw his blood at 1045. As long as potassium is acceptable, he will be discharged home. 05/16/20 22:38 Repeat potassium was 2.9. I will send a prescription for potassium 20 mEq twice daily x4 days. Recommend follow-up early next week to have labs rechecked. Discharge instructions as documented. Departure - Departure Time of Disposition: 22:39 Disposition: Home, Self-Care 01 Condition: Good Clinical Impression: COVID-19, Alcohol abuse - Discharge Information *PRESCRIPTION DRUG MONITORING PROGRAM REVIEWED*: Yes *COPY OF PRESCRIPTION DRUG MONITORING REPORT IN PATIENT HAYDEE: No Prescriptions: LORazepam [Ativan] 1 mg PO ASDIRECTED #18 tab Potassium Chloride 20 meq PO BID 4 Days #8 tab.er.prt Ondansetron [Zofran ODT] 4 mg PO Q6H PRN #10 tab.dis PRN Reason: Nausea/Vomiting Instructions: Alcohol Use Disorder, COVID-19 Frequently Asked Questions, COVID- 19 Referrals: PCP,None [Primary Care Provider] - Forms: ED Department Discharge Additional Instructions: You were seen in the emergency department today for fever, nausea, vomiting, diarrhea, and intermittent abdominal pain as well as chronic alcohol abuse. Your work-up included blood work, an EKG, and a chest x-ray. Results your work- up are consistent with a diagnosis of COVID-19. Your potassium was also found to be significantly low in the ER. Your liver enzymes were also elevated likely due to your chronic alcohol use. This was replaced. You also received IV fluids. Your vital signs were otherwise stable. Recommend that you go home and isolate. You must continue to isolate until at least 10 days from the onset of your symptoms and being fever free without Tylenol or ibuprofen for 48 hours. You have been started on Ativan to help you with your withdrawal symptoms from alcohol. Take this medication as prescribed. You have also been given a prescription for Zofran for nausea. In addition, you have a 4-day course of potassium to take at home. Do not consume alcohol in any form while taking these medications. [facility] has been notified of your case and they will keep in contact with you by phone. If you need to get a hold of them, you may call them at [phone]. Once you are cleared from isolation and feeling better, you can follow-up with them at open intake. This is available Friday through Friday from 8 AM to 2 PM at the [facility]. Recommend that you follow-up in the clinic early next week to have your lab values rechecked to ensure that your potassium is not low. Return to ER as needed. Sepsis Event Note (ED) - Evaluation Sepsis Screening Result: Possible Sepsis Risk
[2020-05-16] MEDS ORDERED: LORazepam 1 MG Tab PO ONE (23:00)
== END 2020-05-16 22:52 | disposition home or self-care (01) ==
LOC: JD.ED 12:10
DX: U07.1 COVID-19 (principal); I10 Essential (primary) hypertension; F17.210 Nicotine dependence, cigarettes, uncomplicated; F10.20 Alcohol dependence, uncomplicated; Y90.6 Blood alcohol level of 120-199 mg/100 ml
CPT/HCPCS: 36415; 71045; 80053; 80307; 83605; 83690; 83735; 85025; 86140; 87635; 96365; 96366; 96375; 99284; A9270; J1885; J3480; J7030; J7120; 99283; U0002

== ENCOUNTER 2020-06-07 09:43 | Emergency (ER) | payer BC ==
[2020-06-07] MEDS ORDERED: LORazepam 2 MG/ML SDV IV ONE (10:19)
[2020-06-07] MEDS ORDERED: Metoclopramide 10 MG/2 ML SDV IVPUSH ONE (10:19)
--- NOTE | 2020-06-07 10:21 | EDM.PDOCBH ---
ED HPI GENERAL MEDICAL PROBLEM - General Chief Complaint: Drug or Alcohol Abuse Stated Complaint: DETOX Time Seen by Provider: 06/07/20 10:19 Source of Information: Reports: Patient History Limitations: Reports: No Limitations - History of Present Illness INITIAL COMMENTS - FREE TEXT/NARRATIVE: 49-year-old male presents to the ED with a history of chronic daily alcohol use for many years. His drink of choice usually black velvet whiskey but lately has been drinking a little bit of vodka as well. He cannot demonstrate how much she has been drinking. His reports that he drank probably 750 mils of black velvet within the last 24 hours. History suggests his stools are chronically loose without blood. He vomited twice last night. reports that is likely due to the [place] that he is chewing that he swallowed which made him vomit. He usually does not vomit in the morning due to alcohol use. No history of hematemesis. He did fall yesterday in the garage well there thinning a bench. It is believed that fumes may have overcome him and caused him to fall. He was drinking alcohol as well. He suffered abrasions to his arms and knees. He did hit his head with a minimal hematoma present. Patient is quite anxious at the time of examination. They have been in contact with [facility] human services and they may well have a bed for him at the residential crisis center. Patient clinically is acutely alcohol intoxicated. Much of his history was gleaned from his on the phone. Reports that he does not use any street drugs or smoke marijuana. He presents to the ED with hopes of being treated for chronic alcoholism. He reports he is never been to the residential crisis center in the past. Of note patient was seen through the emergency department May 16 and identified to be COVID-19 positive at that time. Onset: Other ( chronic daily alcohol abuse. ) Duration: Chronic, Getting Worse Location: Reports: Other (Generalized anxiety. History of chronic alcohol use on a daily basis.) Quality: Reports: Other Severity: Moderate (Nausea vomiting) Improves with: Reports: None Worsens with: Reports: None Context: Reports: Other (History of chronic alcohol abuse and dependency). Denies: Activity, Exercise, Lifting, Sick Contact, Trauma Associated Symptoms: Reports: Loss of Appetite, Malaise, Nausea/Vomiting. Denies: Confusion, Chest Pain, Cough, cough w sputum, Diaphoresis, Fever/Chills, Headaches, Rash (Once last night and again early this morning.), Seizure, Shortness of Breath, Syncope Treatments GAS TORCH BRAZIER: Reports: Other (see below) (None.) - Related Data Allergies Allergy/AdvReac Type Severity Reaction Status Date / Time No Known Allergies Allergy Verified 06/07/20 09:57 Home Meds: Home Meds EPINEPHrine [Epinephrine] 1 applic INJECT ASDIRECTED 12/11/18 [History] diphenhydrAMINE [Benadryl] 25 mg PO QID PRN 12/11/18 [History] LORazepam [Ativan] 1 mg PO ASDIRECTED #18 tab 05/16/20 [Rx] LORazepam [Ativan] 1 mg PO ASDIRECTED #25 tablet 06/07/20 [Rx] Levothyroxine [Synthroid] 100 mcg PO ACBREAKFAST #90 tab 06/07/20 [Rx] Ondansetron [Zofran] 4 mg BUCCAL Q8H PRN #10 tab 06/07/20 [Rx] Past Medical History - Past Health History Medical/Surgical History: Denies Medical/Surgical History HEENT History: Reports: Impaired Vision Cardiovascular History: Reports: High Cholesterol, Hypertension Respiratory History: Reports: None Gastrointestinal History: Reports: GERD Genitourinary History: Reports: None Musculoskeletal History: Reports: None Neurological History: Reports: Concussion Psychiatric History: Reports: Addiction, Anxiety Other Psychiatric History: states has been an alcoholic x 20+ years. States has been drinking hard alcohol since 2011. Endocrine/Metabolic History: Reports: None Hematologic History: Reports: None Immunologic History: Reports: None Oncologic (Cancer) History: Reports: None Dermatologic History: Reports: None - Infectious Disease History Infectious Disease History: Reports: Chicken Pox - Past Surgical History Head Surgeries/Procedures: Reports: None HEENT Surgical History: Reports: None GI Surgical History: Reports: Appendectomy Social & Family History - Family History Family Medical History: No Pertinent Family History Cardiac: Reports: Hypertension, [place] Endocrine/Metabolic: Reports: Diabetes, type II Oncologic: Reports: Breast, Skin - Caffeine Use Caffeine Use: Reports: Coffee, Soda - Recreational Drug Use Recreational Drug Use: No - Living Situation & Occupation Living situation: Reports: Occupation: Employed ED ROS GENERAL - Review of Systems Review Of Systems: See Below Constitutional: Reports: Weakness, Fatigue, Decreased Appetite. Denies: Fever, Chills, Malaise, Night Sweats, Weight Loss HEENT: Reports: Glasses Respiratory: Denies: Shortness of Breath, Wheezing, Pleuritic Chest Pain, Cough, Sputum, Hemoptysis Cardiovascular: Denies: Chest Pain, Blood Pressure Problem, Claudication, Dyspnea on Exertion, Edema, Lightheadedness, Orthopnea Endocrine: Reports: Fatigue GI/Abdominal: Reports: Diarrhea (Stools tend to be on the looser side but he has been having formed bowel movements until yesterday.), Decreased Appetite, Nausea (Has not eaten yet today.), Vomiting (Nausea and vomiting x2 starting last night and again early this morning. No hematemesis appreciated.) : Reports: Frequency, Other (Nocturia x2.) Musculoskeletal: Reports: Neck Pain, Back Pain Skin: Reports: Other (Fall in the garage yesterday with resultant abrasions to upper arms and knees. Also mild contusion to his left forehead) Neurological: Reports: Dizziness, Weakness. Denies: Confusion, Headache, Numbness, Paresthesia, Syncope, Tingling Psychiatric: Reports: Anxiety Hematologic/Lymphatic: Reports: No Symptoms Immunologic: Reports: No Symptoms ED EXAM, BEHAVIORAL HEALTH - Physical Exam Exam: See Below Exam Limited By: Intoxication General Appearance: Anxious, Other (And is very apprehensive. Temperature is 36.4 heart rate 84 and sinus respiratory was 18 with O2 sats of 96% room air BP initially was elevated at 146/94. It subsequently came down to 103/66.) Eye Exam: Bilateral Eye: Normal Inspection (No scleral icterus or blepharal pallor.), PERRL Ears: Normal TMs Nose: Other (He does have some rubor of the face and nose compatible with chronic alcohol abuse.) Throat/Mouth: Other (Diffuse erythema of the oropharynx without signs of infection. He reports that he chews a tin of tobacco every 2 days.) Head: Other (Fell at home yesterday in the garage. Contusion to left forehead) Neck: Normal Inspection, Supple, Non-Tender, Full Range of Motion. No: Carotid Bruit, Lymphadenopathy (L), Lymphadenopathy (R) Respiratory/Chest: No Respiratory Distress, No Accessory Muscle Use, Wheezing (Scattered wheezes through both upper anterior lobes. Many referred sounds from the upper airway.). No: Respiratory Distress Cardiovascular: Normal Peripheral Pulses, Regular Rate, Rhythm, No Edema, No Gallop, No Murmur, No Rub GI/Abdominal: Normal Bowel Sounds, Soft, Non-Tender, No Organomegaly, No Mass, Pelvis Stable, Other Back Exam: Normal Inspection, Full Range of Motion, Vertebral Tenderness (Complains of some pain on palpation of the paravertebral musculature adjacent to lumbar spine.). No: CVA Tenderness (L), CVA Tenderness (R) Extremities: Other (Abrasions right arm starting at the antecubital fossa traveling up the biceps muscle distribution. He has been scratching at this area as well. Similar contusion left palm of hand. Healing abrasion minimal right knee. Has marked swelling of both medial lateral aspects of his right ankle compared with an old fracture. He denies any acute pain in the right ankle and has no knowledge of fracturing his ankle in the past.) Neurological: Alert, CN II-XII Intact, Normal Cognition, Normal Reflexes, No Motor/Sensory Deficits, Oriented x 3 Psychiatric: Restless, Tearful, Other (Very anxious.) Skin Exam: Warm, Dry, Intact, Normal color, No rash COURSE, BEHAVIORAL HEALTH COMP - Course Vital Signs: Last Vital Signs Temp 36.4 C 06/07/20 10:04 Pulse 84 06/07/20 10:04 Resp 18 06/07/20 10:04 BP 146/94 H 06/07/20 10:04 Pulse Ox 96 06/07/20 10:04 Orders, Labs, Meds: Laboratory Tests 06/07/20 06/07/20 06/07/20 Range/Units 10:20 10:20 10:20 WBC 6.31 (4.23-9.07) K/mm3 RBC 3.96 L (4.63-6.08) M/mm3 Hgb 13.0 L D (13.7-17.5) gm/dl Hct 40.7 (40.1-51.0) % MCV 102.8 H D (79.0-92.2) fl MCH 32.8 H (25.7-32.2) pg MCHC 31.9 L (32.2-35.5) g/dl RDW Std Deviation 52.6 H (35.1-43.9) fL Plt Count 162 L (163-337) K/mm3 MPV 8.3 L (9.4-12.3) fl Neut % (Auto) 66.8 (34.0-67.9) % Lymph % (Auto) 21.9 (21.8-53.1) % Teller % (Auto) 8.2 (5.3-12.2) % Eos % (Auto) 1.3 (0.8-7.0) Baso % (Auto) 1.6 H (0.1-1.2) % Neut # (Auto) 4.22 (1.78-5.38) K/mm3 Lymph # (Auto) 1.38 (1.32-3.57) K/mm3 Teller # (Auto) 0.52 (0.30-0.82) K/mm3 Eos # (Auto) 0.08 (0.04-0.54) K/mm3 Baso # (Auto) 0.10 H (0.01-0.08) K/mm3 Manual Slide Review Not Reportable PT 12.0 (9.7-12.0) SECONDS INR 1.12 APTT 30.2 (21.7-31.4) SECONDS Sodium 145 D (136-145) mEq/L Potassium 3.2 L (3.5-5.1) mEq/L Chloride 105 (98-107) mEq/L Carbon Dioxide 27 (21-32) mEq/L Anion Gap 16.2 H (5-15) BUN 7 (7-18) mg/dL Creatinine 1.0 (0.7-1.3) mg/dL Est Cr Clr Drug Dosing 106.18 mL/min Estimated GFR (MDRD) > 60 (>60) mL/min BUN/Creatinine Ratio 7.0 L (14-18) Glucose 115 H (74-106) mg/dL Calcium 8.8 (8.5-10.1) mg/dL Magnesium 1.9 (1.8-2.4) mg/dl Total Bilirubin 1.6 H (0.2-1.0) mg/dL GGT 956 H (15-85) U/L AST 166 H (15-37) U/L ALT 58 (16-63) U/L Alkaline Phosphatase 208 H (46-116) U/L C-Reactive Protein 1.4 H* (<1.0) mg/dL Total Protein 7.7 (6.4-8.2) g/dl Albumin 3.3 L (3.4-5.0) g/dl Globulin 4.4 gm/dL Albumin/Globulin Ratio 0.8 L (1-2) Lipase 248 (73-393) U/L TSH 3rd Generation (0.358-3.74) uIU/mL Urine Opiates Screen (EXXCZD=550) Ur Buprenorphine Scrn (CUTOFF=10) Ur Oxycodone Screen (IXC9CO=282) Urine Methadone Screen (AEO9CS=358) Ur Propoxyphene Screen (OQDAMY=881) Ur Barbiturates Screen (QYYJMT=260) Ur Tricyclics Screen (JZUZLP=462) Ur Phencyclidine Scrn (CUTOFF=25) Ur Amphetamine Screen (CHIUXY=627) U Methamphetamines Scrn (PJEPTB=105) U Benzodiazepines Scrn (DUBSLF=987) U Cocaine Metab Screen (LAOUAB=665) U Marijuana (THC) Screen (CUTOFF=50) Ethyl Alcohol 0.40 (0.00) gm% Hepatitis C Antibody (NEGATIVE) 06/07/20 06/07/20 06/07/20 Range/Units 10:20 10:20 11:12 WBC (4.23-9.07) K/mm3 RBC (4.63-6.08) M/mm3 Hgb (13.7-17.5) gm/dl Hct (40.1-51.0) % MCV (79.0-92.2) fl MCH (25.7-32.2) pg MCHC (32.2-35.5) g/dl RDW Std Deviation (35.1-43.9) fL Plt Count (163-337) K/mm3 MPV (9.4-12.3) fl Neut % (Auto) (34.0-67.9) % Lymph % (Auto) (21.8-53.1) % Teller % (Auto) (5.3-12.2) % Eos % (Auto) (0.8-7.0) Baso % (Auto) (0.1-1.2) % Neut # (Auto) (1.78-5.38) K/mm3 Lymph # (Auto) (1.32-3.57) K/mm3 Teller # (Auto) (0.30-0.82) K/mm3 Eos # (Auto) (0.04-0.54) K/mm3 Baso # (Auto) (0.01-0.08) K/mm3 Manual Slide Review PT (9.7-12.0) SECONDS INR APTT (21.7-31.4) SECONDS Sodium (136-145) mEq/L Potassium (3.5-5.1) mEq/L Chloride (98-107) mEq/L Carbon Dioxide (21-32) mEq/L Anion Gap (5-15) BUN (7-18) mg/dL Creatinine (0.7-1.3) mg/dL Est Cr Clr Drug Dosing mL/min Estimated GFR (MDRD) (>60) mL/min BUN/Creatinine Ratio (14-18) Glucose (74-106) mg/dL Calcium (8.5-10.1) mg/dL Magnesium (1.8-2.4) mg/dl Total Bilirubin (0.2-1.0) mg/dL GGT (15-85) U/L AST (15-37) U/L ALT (16-63) U/L Alkaline Phosphatase (46-116) U/L C-Reactive Protein (<1.0) mg/dL Total Protein (6.4-8.2) g/dl Albumin (3.4-5.0) g/dl Globulin gm/dL Albumin/Globulin Ratio (1-2) Lipase (73-393) U/L TSH 3rd Generation 6.813 H (0.358-3.74) uIU/mL Urine Opiates Screen Negative (HRVLXI=723) Ur Buprenorphine Scrn Negative (CUTOFF=10) Ur Oxycodone Screen Negative (RPY7VN=412) Urine Methadone Screen Negative (NUJ3LN=955) Ur Propoxyphene Screen Negative (YUEKXB=402) Ur Barbiturates Screen Negative (QWCSAT=376) Ur Tricyclics Screen Negative (XHPSCB=462) Ur Phencyclidine Scrn Negative (CUTOFF=25) Ur Amphetamine Screen Negative (FRAIXX=531) U Methamphetamines Scrn Negative (CXACUZ=656) U Benzodiazepines Scrn Negative (LLDTPU=552) U Cocaine Metab Screen Negative (HYLVUK=184) U Marijuana (THC) Screen Negative (CUTOFF=50) Ethyl Alcohol (0.00) gm% Hepatitis C Antibody Negative (NEGATIVE) 06/07/20 06/07/20 Range/Units 16:58 16:58 WBC (4.23-9.07) K/mm3 RBC (4.63-6.08) M/mm3 Hgb (13.7-17.5) gm/dl Hct (40.1-51.0) % MCV (79.0-92.2) fl MCH (25.7-32.2) pg MCHC (32.2-35.5) g/dl RDW Std Deviation (35.1-43.9) fL Plt Count (163-337) K/mm3 MPV (9.4-12.3) fl Neut % (Auto) (34.0-67.9) % Lymph % (Auto) (21.8-53.1) % Teller % (Auto) (5.3-12.2) % Eos % (Auto) (0.8-7.0) Baso % (Auto) (0.1-1.2) % Neut # (Auto) (1.78-5.38) K/mm3 Lymph # (Auto) (1.32-3.57) K/mm3 Teller # (Auto) (0.30-0.82) K/mm3 Eos # (Auto) (0.04-0.54) K/mm3 Baso # (Auto) (0.01-0.08) K/mm3 Manual Slide Review PT (9.7-12.0) SECONDS INR APTT (21.7-31.4) SECONDS Sodium 145 (136-145) mEq/L Potassium 3.5 (3.5-5.1) mEq/L Chloride 109 H (98-107) mEq/L Carbon Dioxide 27 (21-32) mEq/L Anion Gap 12.5 (5-15) BUN 5 L (7-18) mg/dL Creatinine 0.8 (0.7-1.3) mg/dL Est Cr Clr Drug Dosing 132.72 mL/min Estimated GFR (MDRD) > 60 (>60) mL/min BUN/Creatinine Ratio 6.3 L (14-18) Glucose 82 (74-106) mg/dL Calcium 8.1 L (8.5-10.1) mg/dL Magnesium (1.8-2.4) mg/dl Total Bilirubin 1.1 H (0.2-1.0) mg/dL GGT (15-85) U/L AST 137 H (15-37) U/L ALT 50 (16-63) U/L Alkaline Phosphatase 175 H (46-116) U/L C-Reactive Protein (<1.0) mg/dL Total Protein 6.6 (6.4-8.2) g/dl Albumin 2.8 L (3.4-5.0) g/dl Globulin 3.8 gm/dL Albumin/Globulin Ratio 0.7 L (1-2) Lipase (73-393) U/L TSH 3rd Generation (0.358-3.74) uIU/mL Urine Opiates Screen (IDCCNP=326) Ur Buprenorphine Scrn (CUTOFF=10) Ur Oxycodone Screen (ELO4WL=491) Urine Methadone Screen (QEX6RL=989) Ur Propoxyphene Screen (HMGJTE=785) Ur Barbiturates Screen (FQTBOK=029) Ur Tricyclics Screen (AYCXCA=293) Ur Phencyclidine Scrn (CUTOFF=25) Ur Amphetamine Screen (NKKSZM=984) U Methamphetamines Scrn (JCUETV=867) U Benzodiazepines Scrn (FIVRNX=440) U Cocaine Metab Screen (XNAQBM=893) U Marijuana (THC) Screen (CUTOFF=50) Ethyl Alcohol 0.25 (0.00) gm% Hepatitis C Antibody (NEGATIVE) Medications Discontinued Medications Generic Name Dose Route Start Last Admin Trade Name Freq PRN Reason Stop Dose Admin Dextrose/Lactated Ringer's 1,000 mls @ 999 mls/hr 06/07/20 10:30 06/07/20 10:33 Dextrose 5%-Lactated Ringers IV 999 mls/hr ASDIRECTED WINTER Administration Potassium Chloride 10 meq/ 100 mls @ 100 mls/hr 06/07/20 11:45 06/07/20 15:16 Premix IV 06/07/20 15:44 100 mls/hr Q1H WINTER Administration Lactated Ringer's 1,000 mls @ 250 mls/hr 06/07/20 11:45 06/07/20 11:50 Ringers, Lactated IV 250 mls/hr ASDIRECTED WINTER Administration Dextrose/Lactated Ringer's 1,000 mls @ 250 mls/hr 06/07/20 18:30 06/07/20 16:15 Dextrose 5%-Lactated Ringers IV 250 mls/hr ASDIRECTED WINTER Administration Lorazepam 1 mg 06/07/20 10:19 06/07/20 10:32 Ativan IV 06/07/20 10:20 1 mg ONETIME ONE Administration Lorazepam 1 mg 06/07/20 15:17 06/07/20 15:21 Ativan IVPUSH 06/07/20 15:18 1 mg ONETIME ONE Administration Lorazepam 0.5 mg 06/07/20 18:46 06/07/20 18:56 Ativan IVPUSH 06/07/20 18:47 0.5 mg ONETIME ONE Administration Metoclopramide HCl 10 mg 06/07/20 10:19 06/07/20 10:30 Reglan IVPUSH 06/07/20 10:20 10 mg ONETIME ONE Administration Re-Assessment/Re-Exam: 49-year-old male presents to the ED for medical clearance examination for possible admission to the residential crisis center due to chronic alcohol abuse. He is requesting treatment. Most of the history was obtained from his . He reports he drinks large quantities of black velvet whiskey on a daily basis usually 750 mils every 24 hours. He has been drinking vodka a little bit lately as well. Patient is very agitated and anxious. Plan IV D5 Ringer's lactate at open. He has not yet eaten in the last 24 hours. Nausea vomiting x2 last evening. Given Reglan 10 mg IV and Ativan 1 mg IV for anxiety and nausea relief. Routine labs including a serum ethanol and urine drug screen to be obtained Re-Assessment/Re-Exam Date: 06/07/20 (White count is normal at 6.31. Auto differential shows 67% neutrophils. Hemoglobin is 13.0 with hematocrit of 40.7. MCV is elevated at 102.8 compatible with chronic alcohol use. Platelet count low normal at 162,000. PT is 12.0 with an INR of 1.1 to a mild auto anticoagulation. PTT is 30.2. Sodium 145 with potassium of 3.2. Chloride 104 the bicarb of 27. Anion gap is 16.2. BUN is 7 with a creatinine of 1.0 and a GFR greater than 60. Glucose was 115 calcium is 8.8. Magnesium normal at 1.9. Bilirubin is elevated at 1.6. GGT elevated at 956. AST is 166 and ALT is 58. Alk phos today is elevated at 208. These liver abnormalities are felt to be due to chronic alcohol abuse. C-reactive protein is elevated slightly at 1.4. Lipase is 248. Blood alcohol is 0.40 gm%. Patient will therefore require a couple of liters of IV fluid. K rider x4 will be started as well. It would likely take 6 or 7 hours for him to have a blood alcohol of less than 0.20 g%. I am going to order an ultrasound of his right upper carotid abdomen to ascertain if there is any ascites which is not apparent clinically and whether or not there is evidence of significant cirrhosis of the liver versus biliary tree obstruction. On review of his labs done on 16 May he did have markedly elevated transaminases and an alk phos of 254 at that time. Therefore clinically it appears that he does have underlying developing cirrhosis of the liver.) Re-Assessment/Re-Exam Time: 11:32 (TSH is elevated at 6.8 getting subclinical hypothyroidism. Patient will need to be started on levothyroxine therapy. Urine drug screen was negative. I will order hepatitis viral panel.) Medical Clearance: 06/07/20 13:30 x-rays of the right ankle 4 view have been obtained. There is obvious deformity within the talus. This causes degenerative change at the talonavicular joint. There is also degenerative change within the posterior subtalar joint. Deformity is noted within and off the medial malleolus compatible with old injury. No acute bony abnormality is definitively appreciated. Diffuse soft tissue swelling is evident. Ultrasound of the right upper quadrant of the abdomen has been performed. It reveals visualized portions of the pancreas appear to be within normal limits. Liver is enlarged and appears somewhat echogenic most likely represent fatty infiltration. Gallbladder shows no evidence of shadowing gallstones or gallbladder wall thickening. Common bile duct measurements are within upper limits of normal. Right kidney shows no hydronephrosis or mass. Right kidney measures 10.2 cm in length. Inferior vena cava is not well seen but appears to be patent within the visualized portions. There is normal hepatopetal flow. Small amount of fluid is seen within Morison's pouch as well as more fluid within the right lower quadrant compatible with ascites. 06/07/20 19:57: 1900 labs were a repeat CMP and alcohol level carried out reveals a sodium of 145 potassium that has improved from 3.2-3.5 and a chloride of 109 with a bicarb of 27 and a gap improved from 16.2-12.5. Creatinine is 0.8 with a GFR greater than 60. Glucose was 82. Calcium slightly low at 8.1 as the patient has not ate for 2 to 3 days. Bilirubin improved from 1.6-1.1 and a slight drop in serum AST from 1 66-1 37 and ALT from 58-50 and alk phosphatase from 208 to 175. Blood alcohol is dropped from 0.40 g% down to 0.25 g%. Patient will continue IV fluids and Ativan as needed for restlessness and tr emors. He has awakened several times and actually did have a little bite to eat. He falls asleep quite easily. He has required Ativan 1 mg IV x2 doses and will receive 0.5 mg IV before leaving the department. The plan will be to keep him in the department until 2000 hrs. when his blood alcohol will be under 0.20 g%. The plan is to send him to the residential crisis center as there is a bed available and they have accepted care. Patient was identified on lab examination earlier today to be hypothyroid and I forgot about this prior to his discharge. He will require levothyroxine thyroid replacement hormone 100 mcg to start on a daily basis. I will send the prescription to pharmacy of choice. Patient's went and picked up a prescription for Ativan x25 1 mg tabs. He is to take 1 tablet 4 times daily or every 6 hours for the next 3 days then to reduce to 1 every 8 hours for 3 days and then 1 every 12 hours x2 days for a total of 25 tablets. Zofran 4 mg to be taken sublingual every 8 hours for 10 tablets to prevent nausea vomiting due to gastritis clinically and evidence of significant liver dysfunction due to alcoholism. Departure - Departure Time of Disposition: 18:46 Disposition: DC/Tfer to Other 70 Condition: Fair Clinical Impression: Chronic alcoholism, Hypothyroidism (acquired) Gastritis Qualifiers: Gastritis type: alcoholic Chronicity: acute Gastritis bleeding: without bleeding Qualified Code(s): K29.20 - Alcoholic gastritis without bleeding Cirrhosis of liver with ascites Qualifiers: Hepatic cirrhosis type: alcoholic cirrhosis Qualified Code(s): K70.31 - Alcoholic cirrhosis of liver with ascites - Discharge Information *PRESCRIPTION DRUG MONITORING PROGRAM REVIEWED*: Not Applicable *COPY OF PRESCRIPTION DRUG MONITORING REPORT IN PATIENT HAYDEE: Not Applicable Prescriptions: LORazepam [Ativan] 1 mg PO ASDIRECTED #25 tablet Levothyroxine [Synthroid] 100 mcg PO ACBREAKFAST #90 tab Ondansetron [Zofran] 4 mg BUCCAL Q8H PRN #10 tab PRN Reason: nausea or vomiting Instructions: Ataxia Referrals: Anupama Brar MD [Primary Care Provider] - Forms: ED Department Discharge Additional Instructions: Evaluation in the emergency room today in regards to illness related to chronic alcohol use/abuse for many years. Blood alcohol in the emergency department was found to be markedly elevated at 0.40 g%. Liver enzymes are markedly elevated and ultrasound of the liver reveals evidence of cirrhosis of the liver with fluid around the liver called ascites. This means you have stage III out of stage IV liver disease from alcohol use chronically. If you do not stop drinking alcohol you will from cirrhosis of the liver. You were treated in the emergency room with IV fluids to provide rehydration and medications for nausea vomiting and Ativan IV for alcohol withdrawal symptoms which are that point primarily of tremors and nausea. Blood alcohol had come down to 0.20 g% prior to your discharge to the residential crisis center for treatment for alcoholism. You will continue Ativan every 6 hours for the next 3 days and then every 8 hours for 3 days and then every 12 hours for 2 more days to prevent any seizures or delirium tremens or severe adverse reaction from alcohol withdrawal symptoms. Zofran can be used every 8 hours to control nausea and vomiting so that you can start to rehydrate with fluids such as Gatorade Powerade and started to eat again. 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 These injuries are old. Strongly suggest treatment at the residential crisis center as arranged to help you get through acute alcohol withdrawal and to stop drinking alcohol per your request. Due to the busyness of the emergency department and the length of stay the patient had in the emergency department I forgot that I have identified the patient has evidence of hypothyroidism with an elevated TSH of 6.8. He therefore requires thyroid supplementation starting with 100 mcg of levothyroxine once daily approximately 1/2-hour before his first meal. 90 tablets have been prescribed. He will require repeat TSH in 6 to 8 weeks time to further assess further levothyroxine dosage. Sepsis Event Note (ED) - Evaluation Sepsis Screening Result: No Definite Risk - Focused Exam Vital Signs: Vital Signs Temp Pulse Resp BP Pulse Ox 06/07/20 10:04 36.4 C 84 18 146/94 H 96
[2020-06-07] MEDS ORDERED: Dextrose 5%-Lactated Ringers 1,000 ML IV SCH ×2 (10:30→18:30)
[2020-06-07] MEDS ORDERED: Lactated Ringers 1,000 ML IV SCH (11:45)
[2020-06-07] MEDS: Potassium Chloride 10 MEQ in Premix Bag 1 BAG IV SCH ×4 (11:51→15:16)
--- NOTE | 2020-06-07 12:41 | US ---
Limited abdominal ultrasound: Multiple real-time images of the upper right abdomen were obtained. Comparison: No prior right upper quadrant imaging is available. Findings: Pancreas: Visualized portions of the pancreas appear within normal limits. Liver/GB: Liver is enlarged and appears somewhat echogenic most likely representing fatty infiltration. Gallbladder shows no evidence of shadowing gallstones or gallbladder wall thickening. Common bile duct measures within normal limits. Right kidney: No hydronephrosis or mass is appreciated. Right kidney measures 10.2 cm in length. Inferior vena cava: Not well seen but appears to be patent within visualized portions Main portal vein: Hepatopedal flow. Other findings: Small amount of fluid is seen within Morison's pouch as well as more fluid within the right lower quadrant. Impression: 1. Enlarged liver which shows fatty infiltration. 2. Mild amount of ascites around the liver and within the right lower quadrant. 3. No additional abnormality is appreciated on limited abdominal ultrasound. Diagnostic code #3
--- NOTE | 2020-06-07 12:47 | CR ---
Right ankle: 4 views of the right ankle Comparison: No prior ankle study is available on the right side. Findings: Deformity identified within the talus. This causes degenerative change at the talonavicular joint. There is also degenerative change within the posterior subtalar joint. Deformity is noted within and off the medial malleolus compatible with old injury. No acute bony abnormality is definitely appreciated. Soft tissues: Diffuse soft tissue swelling appears to be present. Impression: 1. 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 2. Deformity off the medial malleolus compatible with old injury. 3. Soft tissue swelling. Diagnostic code #3
[2020-06-07] MEDS ORDERED: LORazepam 2 MG/ML SDV IVPUSH ONE ×2 (15:17→18:46)
== END 2020-06-07 20:07 | disposition other institution (70) ==
LOC: JD.ED 09:43
DX: K70.31 Alcoholic cirrhosis of liver with ascites (principal); K29.20 Alcoholic gastritis without bleeding; F10.20 Alcohol dependence, uncomplicated; E03.9 Hypothyroidism, unspecified; S40.812A Abrasion of left upper arm, initial encounter; S40.811A Abrasion of right upper arm, initial encounter; S80.212A Abrasion, left knee, initial encounter; S80.211A Abrasion, right knee, initial encounter; S00.83XA Contusion of other part of head, initial encounter; I10 Essential (primary) hypertension; W19.XXXA Unspecified fall, initial encounter; Y92.59 Other trade areas as the place of occurrence of the external cause
CPT/HCPCS: 36415; 73610; 76705; 80053; 80306; 80307; 82977; 83690; 83735; 84443; 85025; 85610; 85730; 86140; 86803; 96365; 96366; 96375; 96376; 99284; J2060; J2765; J3480; J7120; J7121

== ENCOUNTER 2021-11-19 17:29 | Emergency (ER) | payer BC ==
[2021-11-19] MEDS ORDERED: Ondansetron 4 MG/2 ML SDV IVPUSH ONE (17:55)
[2021-11-19] MEDS ORDERED: Lactated Ringers 1,000 ML IV ONE ×2 (17:55→19:13)
[2021-11-19] MEDS ORDERED: Lactated Ringers 1,000 ML IV SCH (18:00)
[2021-11-19] MEDS ORDERED: LORazepam 2 MG/ML SDV IVPUSH ONE (18:29)
[2021-11-19] MEDS ORDERED: Potassium Chloride 20 MEQ Tab.ER PO ONE (19:14)
== END 2021-11-20 01:05 | disposition home or self-care (01) ==
LOC: JD.ED 17:29
DX: F10.229 Alcohol dependence with intoxication, unspecified (principal); E11.65 Type 2 diabetes mellitus with hyperglycemia; F50.81 Binge eating disorder; E87.6 Hypokalemia
CPT/HCPCS: 36415; 80053; 80307; 82947; 82977; 83690; 85025; 85610; 96361; 96374; 96375; 99284; A9270; J1815; J2060; J2405; J7120

== ENCOUNTER 2022-03-21 17:10 | Inpatient (IN) | payer SELFPAY ==
[2022-03-21] MEDS ORDERED: Sodium Chloride 0.9% 1,000 ML IV SCH (18:00)
[2022-03-21] MEDS: Sodium Chloride 0.9% 10 ML Syringe FLUSH PRN (18:08)
[2022-03-21] MEDS ORDERED: Insulin Regular, Human 100 Units/ML 3 ML Vial SUBCUT ONE (18:55)
[2022-03-21] MEDS ORDERED: HYDROmorphone 0.5 MG/0.5 ML Syringe IVPUSH ONE (19:11)
[2022-03-21] MEDS ORDERED: Sodium Chloride 0.9% 1,000 ML IV STA ×2 (19:12→20:32)
[2022-03-21] MEDS ORDERED: Insulin Glargine,Human Rec. Analog 100 Units/ML 3 ML Pen SUBCUT ONE (20:32)
[2022-03-21] MEDS ORDERED: Ondansetron 4 MG/2 ML SDV IVPUSH PRN (22:50)
[2022-03-22] MEDS ORDERED: Enoxaparin 30 MG/0.3 ML Syringe SUBCUT SCH (08:00)
[2022-03-22] MEDS: NS + KCl 20mEq/L 1,000 ML IV SCH ×2 (08:04→20:39)
[2022-03-22] MEDS: Thiamine 100 MG Tab PO SCH (08:07)
[2022-03-22] MEDS: Folic Acid 1 MG Tab PO SCH (08:07)
[2022-03-22] MEDS: Enoxaparin 40 MG/0.4 ML Syringe SUBCUT SCH (08:07)
[2022-03-22] MEDS: Insulin Lispro 100 Unit/ML 3 ML KwikPen SUBCUT SCH ×4 (08:26→20:45)
[2022-03-22] MEDS ORDERED: Potassium Chloride 20 MEQ Tab.ER PO SCH (09:00)
[2022-03-22] MEDS ORDERED: Diphenhydramine/Lidocaine/MagAl/Simethicone 119 ML Bottle PO PRN (09:40)
[2022-03-22] MEDS: Pantoprazole 40 MG Tab.CR PO SCH (10:01)
[2022-03-22] MEDS: Potassium Chloride 10 MEQ in Premix Bag 1 BAG IV SCH ×4 (10:01→15:12)
[2022-03-22] MEDS: Acetaminophen 325 MG Tab PO PRN ×2 (10:29→18:06)
[2022-03-22 13:05] LABS: HEMOGLOBIN A1C > 14.0 %
[2022-03-22] MEDS: Nicotine 14 MG/24 Hr Patch TRDERM SCH (14:49)
[2022-03-22] MEDS: Insulin Glargine,Human Rec. Analog 100 Units/ML 3 ML Pen SUBCUT SCH (20:44)
[2022-03-22] MEDS: traZODone 50 MG Tab PO PRN (22:07)
[2022-03-23] MEDS: Levothyroxine 100 MCG Tab PO SCH (06:16)
[2022-03-23] MEDS: Insulin Lispro 100 Unit/ML 3 ML KwikPen SUBCUT SCH ×4 (07:36→21:10)
[2022-03-23] MEDS: Acetaminophen 325 MG Tab PO PRN ×2 (08:05→21:08)
[2022-03-23] MEDS: Pantoprazole 40 MG Tab.CR PO SCH (08:06)
[2022-03-23] MEDS: Thiamine 100 MG Tab PO SCH (08:07)
[2022-03-23] MEDS: Folic Acid 1 MG Tab PO SCH (08:07)
[2022-03-23] MEDS: Enoxaparin 40 MG/0.4 ML Syringe SUBCUT SCH (08:09)
[2022-03-23] MEDS: Nicotine 14 MG/24 Hr Patch TRDERM SCH (09:01)
[2022-03-23] MEDS ORDERED: Iopamidol 612 MG/ML 100 ML Bottle IVPUSH ONE (11:10)
[2022-03-23] MEDS ORDERED: Iopamidol 612 MG/ML 50 ML SDV IVPUSH ONE (11:10)
[2022-03-23] MEDS ORDERED: Diatrizoate Meglumine/Diatrizoate Sodium 37% 120 ML Bottle PO ONE (11:10)
[2022-03-23] MEDS: NS + KCl 20mEq/L 1,000 ML IV SCH (11:11)
[2022-03-23] MEDS: Sodium Chloride 0.9% 10 ML Syringe FLUSH PRN (12:17)
[2022-03-23] MEDS: Insulin Glargine,Human Rec. Analog 100 Units/ML 3 ML Pen SUBCUT SCH (21:13)
[2022-03-24] MEDS: traZODone 50 MG Tab PO PRN (00:20)
[2022-03-24] MEDS: NS + KCl 20mEq/L 1,000 ML IV SCH ×2 (00:20→13:42)
[2022-03-24] MEDS: Levothyroxine 100 MCG Tab PO SCH (06:27)
[2022-03-24] MEDS: Acetaminophen 325 MG Tab PO PRN (06:43)
[2022-03-24] MEDS: Insulin Lispro 100 Unit/ML 3 ML KwikPen SUBCUT SCH ×4 (08:20→21:19)
[2022-03-24] MEDS: Thiamine 100 MG Tab PO SCH (08:21)
[2022-03-24] MEDS: Folic Acid 1 MG Tab PO SCH (08:21)
[2022-03-24] MEDS: Pantoprazole 40 MG Tab.CR PO SCH (08:21)
[2022-03-24] MEDS: Nicotine 14 MG/24 Hr Patch TRDERM SCH (08:23)
[2022-03-24] MEDS: Enoxaparin 40 MG/0.4 ML Syringe SUBCUT SCH (11:49)
[2022-03-24] MEDS ORDERED: Furosemide Soln 10 MG/ML 60 ML Bottle PO SCH (16:15)
[2022-03-24] MEDS: Furosemide 20 MG Tab PO SCH (16:29)
[2022-03-24] MEDS: metFORMIN 500 MG Tab PO SCH (16:29)
[2022-03-24] MEDS: traMADol 50 MG Tab PO PRN (16:29)
[2022-03-24] MEDS: Insulin Glargine,Human Rec. Analog 100 Units/ML 3 ML Pen SUBCUT SCH (21:19)
[2022-03-24] MEDS: hydrOXYzine HCl 25 MG Tab PO SCH (23:30)
[2022-03-25] MEDS: Levothyroxine 100 MCG Tab PO SCH (06:38)
[2022-03-25] MEDS: traMADol 50 MG Tab PO PRN ×2 (06:38→19:37)
[2022-03-25] MEDS: Thiamine 100 MG Tab PO SCH (09:47)
[2022-03-25] MEDS: Spironolactone 25 MG Tab PO SCH (09:47)
[2022-03-25] MEDS: Insulin Lispro 100 Unit/ML 3 ML KwikPen SUBCUT SCH ×4 (09:47→20:33)
[2022-03-25] MEDS: Folic Acid 1 MG Tab PO SCH (09:48)
[2022-03-25] MEDS: Furosemide 20 MG Tab PO SCH (09:48)
[2022-03-25] MEDS: Pantoprazole 40 MG Tab.CR PO SCH (09:48)
[2022-03-25] MEDS: Nicotine 14 MG/24 Hr Patch TRDERM SCH (09:49)
[2022-03-25] MEDS: metFORMIN 500 MG Tab PO SCH (17:30)
[2022-03-25] MEDS: Insulin Glargine,Human Rec. Analog 100 Units/ML 3 ML Pen SUBCUT SCH (20:31)
[2022-03-25] MEDS: hydrOXYzine HCl 25 MG Tab PO SCH (20:31)
[2022-03-26] MEDS: Levothyroxine 100 MCG Tab PO SCH (06:02)
[2022-03-26] MEDS: Insulin Lispro 100 Unit/ML 3 ML KwikPen SUBCUT SCH ×3 (06:48→17:47)
[2022-03-26] MEDS: traMADol 50 MG Tab PO PRN (08:01)
[2022-03-26] MEDS: Furosemide 20 MG Tab PO SCH (08:02)
[2022-03-26] MEDS: Pantoprazole 40 MG Tab.CR PO SCH (08:02)
[2022-03-26] MEDS: Spironolactone 25 MG Tab PO SCH (08:02)
[2022-03-26] MEDS: Thiamine 100 MG Tab PO SCH (08:02)
[2022-03-26] MEDS: Folic Acid 1 MG Tab PO SCH (08:02)
[2022-03-26] MEDS: Nicotine 14 MG/24 Hr Patch TRDERM SCH (08:03)
[2022-03-26] MEDS: metFORMIN 500 MG Tab PO SCH (17:29)
== END 2022-03-26 18:01 | disposition home or self-care (01) | DRG 682 ==
LOC: JD.ED 17:10 → EEVIPCON 20:37 → JD.MS 20:37
PROVIDERS: ADMIT Internal Medicine; ATTEND Internal Medicine
DX: N17.9 Acute kidney failure, unspecified (principal); E11.10 Type 2 diabetes mellitus with ketoacidosis without coma; K76.6 Portal hypertension; R18.8 Other ascites; D61.9 Aplastic anemia, unspecified; E86.0 Dehydration; E03.9 Hypothyroidism, unspecified; R63.4 Abnormal weight loss; H54.7 Unspecified visual loss; E78.00 Pure hypercholesterolemia, unspecified; I10 Essential (primary) hypertension; K21.9 Gastro-esophageal reflux disease without esophagitis; F41.9 Anxiety disorder, unspecified; K29.20 Alcoholic gastritis without bleeding; E87.6 Hypokalemia; F10.20 Alcohol dependence, uncomplicated; K74.60 Unspecified cirrhosis of liver; R16.1 Splenomegaly, not elsewhere classified; K75.81 Nonalcoholic steatohepatitis (NASH); Z86.16 Personal history of COVID-19; Z90.49 Acquired absence of other specified parts of digestive tract; Z79.890 Hormone replacement therapy; Z79.899 Other long term (current) drug therapy; Z68.25 Body mass index [BMI] 25.0-25.9, adult
CPT/HCPCS: 36415; 74177; 74177-26; 80048; 80053; 80307; 81001; 82009; 82150; 82607; 82728; 82803; 82947; 83036; 83540; 83605; 83690; 83735; 84443; 84466; 85025; 85027; 86140; 86850; 86900; 86901; 96361; 96374; 97116-GP; 97162-GP; 97166-GO; 97530-GP; 99232; 99239; 99285-25; A9270-GY; J1170; J1650; J1815; J1815-GY; J3475; J3480; J3490; J7030; Q9963; Q9967

== ENCOUNTER 2024-08-11 16:34 | Emergency (ER) | payer SELFPAY ==
[2024-08-11 17:26] LABS: BASOPHILS PERCENT AUTO 2.1 % (0.0-1.0); HEMATOCRIT 35.6 % (42.0-52.0); HEMOGLOBIN 12.4 gm/dl (14.0-18.0); IMMATURE GRAN ABSOLUTE AUTO 0.01 K/mm3 (0.00-0.05); IMMATURE GRAN PERCENT AUTO 0.5 % (0.0-0.4); LYMPHOCYTES ABSOLUTE AUTO 0.4 K/mm3 (1.0-4.8); LYMPHOCYTES PERCENT AUTO 22.6 % (24.0-44.0); MEAN CORPUSCULAR HEMOGLOBIN 32.9 pg (28.0-32.0); MEAN CORPUSCULAR HGB CONC 34.8 g/dl (32.0-36.0); MEAN CORPUSCULAR VOLUME 94.4 fl (83.0-99.0); MEAN PLATELET VOLUME 8.8 fl (9.4-12.4); MONOCYTES ABSOLUTE AUTO 0.2 K/mm3 (0.0-0.8); MONOCYTES PERCENT AUTO 11.3 % (0.0-8.0); NEUTROPHILS ABSOLUTE AUTO 1.2 K/mm3 (1.8-7.7); NEUTROPHILS PERCENT AUTO 62.5 % (41.0-71.0); PLATELET COUNT,PLT 41 K/mm3 (150-400); RED BLOOD CELL COUNT 3.77 M/mm3 (4.52-5.90)
[2024-08-11] MEDS: Sodium Chloride 0.9% 1,000 ML IV ONE ×2 (17:34→22:11)
[2024-08-11 17:52] LABS: ALBUMIN 3.5 g/dl (3.4-5.0); ANION GAP 18.1 (5-15); BILIRUBIN TOTAL 3.2 mg/dL (0.2-1.0); BUN/CREATININE RATIO 7.5 (14-18); CALCIUM 7.9 mg/dL (8.5-10.1); CREATININE 0.8 mg/dL (0.7-1.3); EST CRCL DRUG DOSING (CG) 127.01 mL/min; ETHANOL BLOOD MEDICAL 0.43 gm% (0.00); MAGNESIUM 1.6 mg/dL (1.8-2.4); POTASSIUM,K 3.1 mEq/L (3.5-5.1); PROTEIN TOTAL,TP 7.1 g/dl (6.4-8.2)
[2024-08-11 17:54] LABS: WHITE BLOOD CELL COUNT,WBC 1.95 K/mm3 (3.9-11.3)
[2024-08-11 18:11] LABS: INR 1.24
[2024-08-11 18:12] LABS: PTT,PARTIAL THROMBOPLSTIN TIME 27.3 SECONDS (21.7-31.4)
[2024-08-11 18:19] LABS: LACTIC ACID 2.7 mmol/L (0.4-2.0)
[2024-08-11 18:24] LABS: APPEARANCE,URINE CLEAR (Clear); BILIRUBIN,URINE NEGATIVE (Negative); COLOR,URINE YELLOW (Yellow); GLUCOSE,URINE NEGATIVE (Negative); KETONES,URINE NEGATIVE (Negative); LEUKOCYTE ESTERASE,URINE NEGATIVE (Negative); NITRITE,URINE NEGATIVE (Negative); OCCULT BLOOD,URINE NEGATIVE (Negative); PH,URINE 6.5 (5.0-8.0); PROTEIN,URINE NEGATIVE (Negative)
[2024-08-11] MEDS: Potassium Chloride 20 MEQ Tab.ER PO ONE (19:49)
[2024-08-11] MEDS: Iopamidol 612 MG/ML 100 ML Bottle IVPUSH ONE (19:54)
[2024-08-11] MEDS: Magnesium Sulfate/Water Premix 4 GM in Premix Bag 1 BAG IV ONE (21:32)
[2024-08-12] MEDS: LORazepam 2 MG/ML SDV IVPUSH ONE (05:53)
== END 2024-08-12 06:30 | disposition home or self-care (01) ==
LOC: JD.ED 16:34
DX: F10.10 Alcohol abuse, uncomplicated (principal); D72.819 Decreased white blood cell count, unspecified; I10 Essential (primary) hypertension; E78.00 Pure hypercholesterolemia, unspecified; K21.9 Gastro-esophageal reflux disease without esophagitis; E11.9 Type 2 diabetes mellitus without complications; Z86.16 Personal history of COVID-19; Z90.49 Acquired absence of other specified parts of digestive tract; Z79.4 Long term (current) use of insulin; Z79.84 Long term (current) use of oral hypoglycemic drugs; Z79.890 Hormone replacement therapy; Z79.899 Other long term (current) drug therapy; Y90.0 Blood alcohol level of less than 20 mg/100 ml
CPT/HCPCS: 36415; 71045; 74177; 80053; 80307; 81003; 83605; 83735; 85025; 85610; 85730; 87040; 93005; 96361; 96365; 96366; 96375; 99285; A9270; J2060; J3475; J7030; Q9967